=== PATIENT | female | born 1975 | race Caucasian/White ===

== ENCOUNTER → 2016-10-15 | Outpatient (CLI) | payer OTHER ==
[2016-07-08 15:15] VITALS: BP 142/83
[~2016-10-15] MED LIST: CETI10TA16 PO; CYCL10TA2 PO; HYDR115S2 PO; LOSA50TA6 PO; MELO-156 PO; MULT1TAB52 PO; POLY10DR EACHEYE; PRED50TA PO; PROAIR HFA8.5 GM INH
--- NOTE | 2016-10-15 14:34 | RAD ---
DATE: 10/15/2016 EXAM: DIGITAL SCREEN BILAT W/CAD HISTORY: Routine screening COMPARISON: Baseline study This study was interpreted with the benefit of Computerized Aided Detection (CAD). FINDINGS: There are scattered fibroglandular densities in the breasts. No mass is identified. There is a coarse benign-appearing calcification in the central aspect of the left breast. More anteriorly in the central portion of the left breast there is a tight cluster of microcalcifications. No unusual right breast calcifications are seen. IMPRESSION: Single cluster of left breast microcalcifications. Magnification views including a straight mediolateral view are suggested for optimal characterization. BI-RADS CATEGORY: 0 INCOMPLETE: NEEDS ADDITIONAL IMAGING EVALUATION AND/OR PRIOR MAMMOGRAMS FOR COMPARISON. RECOMMENDED FOLLOW-UP: ADD ADDITIONAL IMAGING PQRS compliance statement: Patient information was entered into a reminder system with a target due date for the next mammogram. Mammography is a sensitive method for finding small breast cancers, but it does not detect them all and is not a substitute for careful clinical examination. A negative mammogram does not negate a clinically suspicious finding and should not result in delay in biopsying a clinically suspicious abnormality. "Our facility is accredited by the [employer] Mammography Program."
== END | disposition home or self-care (01) ==
LOC: MAMMO 13:23
PROVIDERS: ATTEND Pediatrics
DX: Z12.31 Encounter for screening mammogram for malignant neoplasm of breast (principal)
CPT/HCPCS: G0202; 77067

== ENCOUNTER → 2016-10-31 | Outpatient (CLI) | payer OTHER ==
[2016-07-08 15:15] VITALS: BP 142/83
== END | disposition home or self-care (01) ==
LOC: MAMMO 16:07
PROVIDERS: ATTEND Pediatrics
DX: N63 Unspecified lump in breast (principal)
CPT/HCPCS: G0206; 77065

== ENCOUNTER 2017-05-13 09:53 | Emergency (ER) | payer SELFPAY ==
[~2017-05-13] VITALS: Ht 170.2 cm; Wt 78.5 kg
[~2017-05-13 09:53] MED LIST changes: -MELO-156 PO; +MELO7.5T29 PO
[2017-05-13 10:20] VITALS: BP 138/73
--- NOTE | 2017-05-13 10:36 | PHYS DOC ---
Past Medical History Past Medical History: Bronchitis, Hypertension, Other Additional Past Medical Histor: carpal tunnel, SEASONAL ALLERGIES Past Surgical History: Cholecystectomy, Tubal ligation Additional Past Surgical Histo: D&C Alcohol Use: Occasionally Drug Use: Marijuana Adult General Chief Complaint Chief Complaint: GROIN PAIN [facility] HPI Patient is a 41 year old female with history of hypertension who presents today with a mass on her right groin that has been present for one week. Patient denies any known injury. Patient states she feels the mass is growing bigger. Patient states the mass is painful on palpation as well as ambulation. Patient denies any fever. Denies any drainage from the area. Review of Systems Review of Systems Constitutional: Denies fever or chills [] Eyes: Denies change in visual acuity, redness, or eye pain [] HENT: Denies nasal congestion or sore throat [] Respiratory: Denies cough or shortness of breath [] Cardiovascular: No additional information not addressed in HPI [] GI: Denies abdominal pain, nausea, vomiting, bloody stools or diarrhea [] : Denies dysuria or hematuria [] Musculoskeletal: Denies back pain or joint pain [] Integument: Right groin mass Neurologic: Denies headache, focal weakness or sensory changes [] All other systems were reviewed and found to be within normal limits, except as documented in this note. Allergies Allergies Allergies Coded Allergies Type Severity Reaction Last Updated Verified ibuprofen Allergy Unknown Hives 05/20/15 Yes Physical Exam Physical Exam Constitutional: Well developed, well nourished, no acute distress, non-toxic appearance. [] HENT: Normocephalic, atraumatic, bilateral external ears normal, oropharynx moist, no oral exudates, nose normal. [] Eyes: PERRLA, EOMI, conjunctiva normal, no discharge. [] Neck: Normal range of motion, no tenderness, supple, no stridor. [] Cardiovascular:Heart rate regular rhythm, no murmur [] Lungs & Thorax: Bilateral breath sounds clear to auscultation [] Abdomen: Bowel sounds normal, soft, no tenderness, no masses, no pulsatile masses. [] Skin: Warm, dry, no erythema, no rash. [] Back: No tenderness, no CVA tenderness. [] Extremities: Right groin area with no obvious exterior masses. A palpable lymph node/mass noted on the right groin, the area is not warm but tender on palpation. No erythema to the area. Neurologic: Alert and oriented X 3, normal motor function, normal sensory function, no focal deficits noted. [] Psychologic: Affect normal, judgement normal, mood normal. [] Current Patient Data Vital Signs Vital Signs Date Time Temp Pulse Resp B/P (MAP) Pulse Ox O2 Delivery O2 Flow Rate FiO2 05/13/17 10:20 98.1 77 18 98 Room Air 98.1 EKG EKG [] Radiology/Procedures Radiology/Procedures []PROCEDURE: EXT NON VASC RIGHT EXT NON VASC RIGHT Clinical Indication: Right groin mass. May be lymph node Comparison: CT abdomen and pelvis dated 02/04/2013. Technique: Real-time grayscale and color Doppler ultrasound of the right groin region of interest was obtained. Findings: In the region of interest in the right groin there is a 2.7 x 1.5 x 2.1 cm mass with fatty hilum. This likely represents an enlarged lymph node with a thickened cortex measuring 1.1 cm. Increased vascularity noted within the lymph node. IMPRESSION: Enlarged right groin lymph node which could be reactive. Other causes of lymphadenopathy including metastases and lymphoma cannot be excluded. This could be followed clinically with physical exam until resolution if patient's history is consistent with reactive lymphadenopathy. It would be amenable to ultrasound-guided tissue biopsy if indicated. DICTATED and SIGNED BY: SALEEM NUNES MD DATE: 05/13/17 1137 CC: CARMINA MEEK MD; HAL VILLEGAS APRN; NON,STAFF ~ Course & Med Decision Making Course & Med Decision Making Pertinent Labs and Imaging studies reviewed. (See chart for details) Patient is in the ED with a right groin mass for one week. Ultrasound on the area shows there is an enlarged right groin lymph node which could be reactive though radiologist mentions other causes could be lymphadenopathy including metastases and lymphoma which could not be excluded. They recommended this to be followed up clinically with physical exam until resolution if patient's history is consistent with reactive lymph node. They also recommended an ultrasound-guided tissue biopsy if indicated. Gave patient results. She states she recently had a biopsy of her breast which was negative. Patient states she has no medical insurance. We will provide her with clinic list. Emphasized importance of following up on this issue. Discharged with Ultram and prednisone. Craig Disclaimer Dragon Disclaimer This electronic medical record was generated, in whole or in part, using a voice recognition dictation system. Departure Departure Impression: Primary Impression: Lymphadenopathy, inguinal Disposition: HOME, SELF-CARE Condition: STABLE Referrals: CARMINA MEEK MD (PCP) Please follow up with your doctor or a doctor from the list provided Additional Instructions: You were seen with a large lymph node in the right groin. This lymph node is concerning and needs to be followed up closely. As we discussed please follow- up with a primary care doctor and they will monitor this area and do further testing if needed. Scripts Prednisone (PREDNISONE) 50 Mg Tablet 1 TAB PO DAILY, #4 TAB Prov: HAL VILLEGAS APRN 05/13/17 Tramadol Hcl (ULTRAM) 50 Mg Tablet 1 TAB PO Q6HRS, #30 TAB Prov: HAL VILLEGAS APRN 05/13/17 HAL VILLEGAS APRN May 13, 2017 10:36
--- NOTE | 2017-05-13 11:47 | RAD ---
EXT NON VASC RIGHT Clinical Indication: Right groin mass. May be lymph node Comparison: CT abdomen and pelvis dated 02/04/2013. Technique: Real-time grayscale and color Doppler ultrasound of the right groin region of interest was obtained. Findings: In the region of interest in the right groin there is a 2.7 x 1.5 x 2.1 cm mass with fatty hilum. This likely represents an enlarged lymph node with a thickened cortex measuring 1.1 cm. Increased vascularity noted within the lymph node. IMPRESSION: Enlarged right groin lymph node which could be reactive. Other causes of lymphadenopathy including metastases and lymphoma cannot be excluded. This could be followed clinically with physical exam until resolution if patient's history is consistent with reactive lymphadenopathy. It would be amenable to ultrasound-guided tissue biopsy if indicated.
[2017-05-13] MEDS ORDERED: PRED50TA PO (12:12)
[2017-05-13] MEDS ORDERED: TRAM-48 PO (12:12)
[2017-05-13] MEDS ORDERED: predniSONE 10 MG TABLET PO ONE (12:15)
[2017-05-13] MEDS ORDERED: traMADol 50 MG TABLET PO ONE (12:15)
== END 2017-05-13 12:21 | disposition home or self-care (01) ==
LOC: ER 09:53
DX: R59.1 Generalized enlarged lymph nodes (principal); R19.09 Other intra-abdominal and pelvic swelling, mass and lump; I10 Essential (primary) hypertension; F12.10 Cannabis abuse, uncomplicated; Z88.6 Allergy status to analgesic agent
CPT/HCPCS: 76881; 99284; J7512